=== PATIENT | female | born 1945 | race Caucasian/White ===

== ENCOUNTER 2023-04-22 12:21 | Outpatient (CLI) | payer MEDICARE, OTHER | END 2023-04-22 12:22 | disposition home or self-care (01) | LOC: CSHMAMMO 12:21 | PROVIDERS: ATTEND Internal Medicine Rheumatology | DX: M81.0 Age-related osteoporosis without current pathological fracture (principal); M85.80 Other specified disorders of bone density and structure, unspecified site; Z78.0 Asymptomatic menopausal state | CPT/HCPCS: 77080 ==